=== PATIENT | male | born 1970 | race Caucasian/White ===

== ENCOUNTER 2017-01-13 11:34 | Emergency (ER) | payer OTHER ==
[~2017-01-13] VITALS: Ht 185.4 cm; Wt 129.7 kg
[2017-01-13] MEDS ORDERED: PREDNISONE10 MG PO (12:57)
[2017-01-13] MEDS ORDERED: TRAMADOL HCL50 MG PO (12:57)
[2017-01-13] MEDS ORDERED: FLEXERIL10 MG PO (12:57)
[2017-01-13 13:07] VITALS: BP 146/88
== END 2017-01-13 13:08 | disposition home or self-care (01) ==
LOC: EME 11:34
DX: M54.42 Lumbago with sciatica, left side (principal); M46.1 Sacroiliitis, not elsewhere classified; Z87.891 Personal history of nicotine dependence
CPT/HCPCS: 99281; 99284; J3010